=== PATIENT | female | born 1970 | race Caucasian/White ===

== ENCOUNTER 2019-10-20 08:53 | Emergency (ER) | payer OTHER ==
[~2019-10-20] VITALS: Ht 167.6 cm; Wt 113.4 kg
[2019-10-20] MEDS ORDERED: CYCLOBENZAPRINE10 MG PO (13:47)
[2019-10-20] MEDS ORDERED: Motrin,Rufen800 MG PO (13:49)
== END 2019-10-20 13:52 | disposition home or self-care (01) ==
LOC: ED 08:53
DX: M54.5 Low back pain (principal); Z88.6 Allergy status to analgesic agent; Z88.8 Allergy status to other drugs, medicaments and biological substances; X58.XXXA Exposure to other specified factors, initial encounter; Y93.89 Activity, other specified; Y92.89 Other specified places as the place of occurrence of the external cause; Y99.0 Civilian activity done for income or pay